=== PATIENT | female | born 1950 | race Caucasian/White ===

== ENCOUNTER → 2017-06-20 | Outpatient (CLI) | payer MEDICAID, MEDICARE ==
[~2017-06-20] MED LIST: GADOBUTROL 10 MMOL/10 ML VIAL ONE
== END | disposition home or self-care (01) ==
LOC: CFH 13:40
PROVIDERS: ATTEND Family Medicine
DX: Z13.0 Encounter for screening for diseases of the blood and blood-forming organs and certain disorders involving the immune mechanism (principal)
CPT/HCPCS: 82565; A9585; C8908

== ENCOUNTER → 2018-06-24 | Outpatient (CLI) | payer MEDICARE ==
[~2018-06-24] MED LIST changes: +CALC-534 PO; +CETI10CA PO; -GADOBUTROL 10 MMOL/10 ML VIAL ONE; +GADOBUTROL 7.5 MMOL/7.5 ML VIAL ONE; +SIMV20TA3 PO
== END | disposition home or self-care (01) ==
LOC: CFH 09:44
PROVIDERS: ATTEND Family Medicine
DX: N60.89 Other benign mammary dysplasias of unspecified breast (principal)
CPT/HCPCS: A9585; C8908

== ENCOUNTER 2019-06-30 09:17 | Outpatient (CLI) | payer MEDICARE ==
[~2019-06-30 09:17] MED LIST changes: -GADOBUTROL 7.5 MMOL/7.5 ML VIAL ONE
[2019-06-30] MEDS ORDERED: GADOTERATE 10 MMOL/20 ML VIAL ONE (09:52)
== END 2019-06-30 23:59 | disposition home or self-care (01) ==
LOC: CFH 09:17
PROVIDERS: ATTEND Family Medicine
DX: N60.89 Other benign mammary dysplasias of unspecified breast (principal)
CPT/HCPCS: 77049; A9575; C8937; C8908

== ENCOUNTER → 2020-01-09 | Outpatient (CLI) | payer MEDICARE ==
[~2020-01-09] MED LIST changes: +SIMV20TA19 PO; -SIMV20TA3 PO
== END | disposition home or self-care (01) ==
LOC: CFH 08:31
PROVIDERS: ATTEND Family Medicine
DX: Z12.31 Encounter for screening mammogram for malignant neoplasm of breast (principal); M81.0 Age-related osteoporosis without current pathological fracture
CPT/HCPCS: 77063; 77067; 77080

== ENCOUNTER → 2020-07-07 | Outpatient (CLI) | payer MEDICARE ==
[~2020-07-07] MED LIST changes: +GADOTERATE 7.5 MMOL/15 ML VIAL ONE
== END | disposition home or self-care (01) ==
LOC: CFH 10:32
PROVIDERS: ATTEND Pathology Hematology
DX: N60.89 Other benign mammary dysplasias of unspecified breast (principal)
CPT/HCPCS: 77049; A9575; C8908